=== PATIENT | male | born 1960 | race Hispanic/Latino ===

== ENCOUNTER → 2019-04-20 | Day surgery (SDC) | payer OTHER ==
[~2019-04-20] MED LIST: BUPIVACAINE HCL 0.5% INJ 30 ML VIAL INJ ONE; DEXAMETHASONE SOD PHOS INJ 4 MG/ML VIAL ONE; FENTANYL CITRATE/PF 100MCG/2 ML INJ ONE; FLOMAX0.4 MG PO; GLYCOPYRROLATE INJ 1MG/ 5 ML SYR ONE; LIDOCAINE HCL 2% LOCAL INJ 5 ML SDV VIAL INJ ONE; MIDAZOLAM HCL 2 MG/2 ML VIAL ONE; NEOSTIGMINE 1 MG/ML 10ML VIAL ONE; NEOSTIGMINE 5 MG/5ML SYR ONE; ONDANSETRON HCL INJ 2MG/ML 2ML 2 MG/ML VIAL ONE; PROPOFOL IV EMULSION 10 MG/ML 20 ML VIAL ONE; ROCURONIUM BROMIDE 10 MG/ML 5ML VIAL ONE; VANCOMYCIN 1GM/NS 250 ML 250 ML ONE
[2019-04-20 11:25] VITALS: BP 118/76
--- NOTE | 2019-04-20 13:22 | Operative Report ---
DATE OF PROCEDURE: 04/20/2019 SURGEON: Padmini Griffin DPM PREOPERATIVE DIAGNOSIS: Achilles tendon tear secondary to mass. POSTOPERATIVE DIAGNOSIS: Achilles tendon tear secondary to mass. PROCEDURE: Excision of mass with Achilles repair, left foot. Pathology was removed. SPECIMEN: Sent for pathology. HEMOSTASIS: None. ESTIMATED BLOOD LOSS: Less than 10 mL. MATERIALS: A human allograft 2 x 2 to prevent adhesions for repair of the tendon. COMPLICATIONS: None. CONDITION: Stable. PROCEDURE IN DETAIL: Under mild sedation, the patient was brought to the operating room, placed on the operating table in supine position. Following IV sedation, anesthesia was then obtained with a general anesthetic. At this point, the left foot was scrubbed, prepped, and draped in the usual aseptic manner. It was then lowered to the table after the patient was put in a prone position. Attention was then directed to the posterior aspect of the left foot, where 2 curvilinear incisions were made overlying the area of the soft tissue mass into the tendon. The incision was deepened down to the level of the tendon. The mass was isolated. It was then removed. Part of the tendon was removed along with the mass. The mass was sent for pathology. At this point, the tendon was then repaired utilizing human allograft and Prolene. The area was then flushed with copious amount of normal sterile saline solution. The area was then closed closing the deepest layer with 3-0 Vicryl and 4-0 nylon. Clean dressing was applied consisting of Adaptic, ointment, 4x4s, Kerlix, and an Bakari bandage. The patient tolerated the procedure and anesthesia well without complications, was transported to recovery room with vital signs stable and vascular status intact. The patient will be discharged home when he meets criteria. He was given written instructions to be nonweightbearing, to ice and elevate the foot while at rest, to follow up with me in the office and to call the office if any questions, concerns, or new problems arise. GERMAN Felix/ISRAELL /[id number]
== END | disposition home or self-care (01) ==
LOC: OR 07:02
PROVIDERS: ATTEND Podiatrist Foot & Ankle Surgery
DX: S86.012A Strain of left Achilles tendon, initial encounter (principal); N40.0 Benign prostatic hyperplasia without lower urinary tract symptoms; X58.XXXA Exposure to other specified factors, initial encounter; Z88.0 Allergy status to penicillin; Z01.810 Encounter for preprocedural cardiovascular examination
CPT/HCPCS: 27630; 27650; 76000; 88305; 88311; 93005; J1100; J2001; J2250; J2405; J2704; J2710; J3010; J3370; J3490; 88304